=== PATIENT | male | born 1960 | race Caucasian/White ===

== ENCOUNTER 2018-04-24 12:55 | Outpatient (CLI) | payer BC, OTHER ==
--- NOTE | 2018-04-25 08:30 | Ultrasound Report ---
Reason: ENCOUNTER FOR SCREENING FOR CARDIOVASCULAR DISORDE Procedure Date: 04/24/2018 Accession Number: [id number] / [id number] Procedure: US - Aorta Screening CPT Code: FULL RESULT: EXAM: AORTIC DOPPLER ULTRASOUND EXAM DATE: 04/24/2018 01:05 PM. CLINICAL HISTORY: Encounter for screening for cardiovascular disorder. COMPARISON: None. TECHNIQUE: Real-time sonographic imaging of retroperitoneal vascular structures, including color-flow, Doppler flow and spectral analysis was performed by the [employer] manager. Multiple telemarketing representative static images were saved for review. FINDINGS: Aorta: There is fusiform aneurysm of the distal infrarenal aorta just above the bifurcation measuring 3.1 x 3.3 cm in transverse dimension involving a 5.7 cm length of the infrarenal aorta. Aneurysmal dilatation spares the iliac arteries. Aorta: Proximal: Sagittal AP: 2.3 cm. Mid: Transverse: 1.9 x 2.0 cm. Distal: Transverse: 3.1 x 3.3 cm. Iliacs: Right Iliac: Transverse: 1.1 x 1.1 cm. Left Iliac: Transverse: 1.3 x 1.1 cm. Doppler: Distal Aorta PSV: 30.9 cm/sec. Iliac Vessels: The visualized proximal common iliac arteries are normal in caliber. Other: None. IMPRESSION: 3.3 cm fusiform aneurysm distal infrarenal aorta as described. RADIA
== END 2018-04-24 12:56 | disposition home or self-care (01) ==
LOC: DI 12:55
PROVIDERS: ATTEND Specialist
DX: Z13.6 Encounter for screening for cardiovascular disorders (principal); I71.4 Abdominal aortic aneurysm, without rupture; F17.200 Nicotine dependence, unspecified, uncomplicated
CPT/HCPCS: 76706

== ENCOUNTER 2018-12-05 08:30 | Emergency (ER) | payer BC, OTHER ==
--- NOTE | 2018-12-05 08:41 | ED Physician Documentation ---
History of Present Illness - Stated complaint Stated Complaint: RT LEG RASH - Additonal information Additional information: This is a 58-year-old male who presents with right leg Redness and swelling that begin while he was in [facility]. Patient states that prior to going to [facility] he was working on his knees in [place] and then upon arriving in [facility] around 10 days ago he began developing some redness of his right lower leg that began around the ankle area. He went into the hospital there and he was prescribed Augmentin, this did not improve his rash after several days so he re-presented and was prescribed dicloxacillin. The doctors there reportedly wanted to admit him to the hospital there, but he decided to fly back [facility] to seek care here instead. States that the rash was somewhat improving but yesterday on the plane it worsened again. He notes some redness around his kneecap, extending down the leg. He denies pain with flexion of his knee, no pain in the knee joint itself. He denies fever now, although he states that when the symptoms first began he did have some vomiting and feeling of general malaise. He denies any exposure to animals, or specific cuts or injuries to the area. Review of Systems Constitutional: denies: Fever Nose: denies: Rhinorrhea / runny nose Cardiac: denies: Chest pain / pressure Respiratory: denies: Dyspnea GI: denies: Abdominal Pain : denies: Dysuria Skin: reports: Rash Musculoskeletal: denies: Neck pain Neurologic: denies: Generalized weakness Immunocompromised: denies: Immunocompromised PD PAST MEDICAL HISTORY - Past Medical History Cardiovascular: [place] Respiratory: None Endocrine/Autoimmune: None GI: None : None HEENT: None Psych: None Musculoskeletal: None Derm: None - Past Surgical History Past Surgical History: Yes Ortho: ACL reconstruction Cardiovascular: Coronary stent - Present Medications Home Medications: Ambulatory Orders Medication Instructions Recorded Confirmed Atorvastatin Calcium [Lipitor] 40 mg PO 03/28/13 03/28/13 Clopidogrel [Plavix] 75 mg PO DAILY 03/28/13 03/28/13 Losartan [Cozaar] 25 mg PO ONCE 03/28/13 03/28/13 Metoprolol Succinate [Toprol Xl] 25 mg PO DAILY 03/28/13 03/28/13 Aspirin 81 mg PO DAILY 09/07/15 09/07/15 Clindamycin HCl [Clindamycin 300MG 300 mg PO Q6H #40 capsule 12/05/18 CAP] - Allergies Allergies/Adverse Reactions: Allergies Allergy/AdvReac Type Severity Reaction Status Date / Time No Known Drug Allergies Allergy Verified 12/05/18 08:42 - Social History Does the pt smoke?: Yes Smoking Status: Current every day smoker Does the pt drink ETOH?: No Does the pt have substance abuse?: No - Immunizations Immunizations are current?: Yes Immunizations: No immun PD ED PE NORMAL - Vitals Vital signs reviewed: Yes - General General: Alert and oriented X 3, No acute distress - HEENT HEENT: PERRL - Neck Neck: Supple, no meningeal sign - Cardiac Cardiac: RRR - Respiratory Respiratory: No respiratory distress, Clear bilaterally - Abdomen Abdomen: Soft, Non tender, Non distended - Derm Derm: Other (On the RLL there is an area of 4x4cm of erythema overlying the patella. No redness over the joint line, patient has full painless ROM of his knee. Distal to the patella there are scattered erythematous patches with mild induration, no purulence. These are mostly blanchable but several of the lesions have a dark-red component that is less-blanchable. No petechiae.) - Extremities Extremities: No deformity - Neuro Neuro: Alert and oriented X 3 - Psych Psych: Normal mood, Normal affect Results - Vitals Vitals: Vital Signs - 24 hr 12/05/18 12/05/18 12/05/18 08:40 10:28 12:00 Temperature 36.6 C Heart Rate 86 81 75 Respiratory 20 16 16 Rate Blood Pressure 139/84 H 115/74 120/82 H O2 Saturation 98 99 100 Oxygen O2 Source Room air - Labs Labs: Microbiology 12/05/18 13:10 Body Fluid Culture - Preliminary Other - Aspirate Laboratory Tests 12/05/18 12/05/18 12/05/18 09:10 09:10 09:10 WBC 7.6 RBC 4.17 L Hgb 13.6 L Hct 40.0 L MCV 95.9 H MCH 32.6 H MCHC 34.0 RDW 12.5 Plt Count 343 MPV 10.1 Neut # (Auto) 4.8 Lymph # (Auto) 1.9 Toombs # (Auto) 0.6 Eos # (Auto) 0.1 Baso # (Auto) 0.1 Absolute Nucleated RBC 0.00 Nucleated RBC % 0.0 PT 13.4 H INR 1.2 Sodium 139 Potassium 4.1 Chloride 102 Carbon Dioxide 27 Anion Gap 10.0 BUN 14 Creatinine 0.9 Estimated GFR (MDRD) 87 L Glucose 112 H Lactic Acid Calcium 9.8 Total Bilirubin 0.7 AST 30 ALT 42 Alkaline Phosphatase 88 C-Reactive Protein 1.4 H Total Protein 7.1 Albumin 3.7 Globulin 3.4 Albumin/Globulin Ratio 1.1 Lipase 41 12/05/18 09:10 WBC RBC Hgb Hct MCV MCH MCHC RDW Plt Count MPV Neut # (Auto) Lymph # (Auto) Toombs # (Auto) Eos # (Auto) Baso # (Auto) Absolute Nucleated RBC Nucleated RBC % PT INR Sodium Potassium Chloride Carbon Dioxide Anion Gap BUN Creatinine Estimated GFR (MDRD) Glucose Lactic Acid 1.3 Calcium Total Bilirubin AST ALT Alkaline Phosphatase C-Reactive Protein Total Protein Albumin Globulin Albumin/Globulin Ratio Lipase - Rads (name of study) DVT US R leg Radiology: Other (No DVT) PD MEDICAL DECISION MAKING - ED course Complexity details: considered differential (Cellulitis, bursitis, vasculitis, parasitic/fungal infection) ED course: Patient presents with a persistent rash that began while in [place] and has been refractory to 2 different antibiotics. He is afebrile and well-appearing. Labs show no leukocytosis, and only a very slightly elevated CRP. Lactate is normal. Using US I was able to localize a very small pre-patellar fluid collection on his right knee that was aspirated and sent for culture, gram stain negative for organisms. This appears to be a prepatellar cellulitis/possible infected bursitis, no signs of septic joint. The rash lower on his leg appears to be a seperate entity. It also may be cellulitis, though the darker red areas are not classic for cellulitis and raise concern for possible vasculitis such as "hikers/golfer's/exercise-induced vasculitis". However this is also atypical for vasculitis because it only affects one leg. Given his reassuring labs and exam, and lack of worrisome symptoms such as fever, involvement of palms or soles, or mucous membranes we discussed treatment options and elected to try clindamycin, which has broader coverage including some MRSA coverage for cellulitis. If the rash is not improving, or if it is spreading or worsening, patient will return for a recheck tomorrow. He understands the diagnostic uncertainty and the need for follow up in the ED or with his PCP. Patient was given the first dose of antibiotic and was discharged in the care of his . Departure - Departure Disposition: 01 Home, Self Care Clinical Impression: Cellulitis Qualifiers: Site of cellulitis: extremity Site of cellulitis of extremity: lower extremity Laterality: right Qualified Code(s): L03.115 - Cellulitis of right lower limb Condition: Good Instructions: Cellulitis Dc Follow-Up: CHAPARRO KILGORE [Primary Care Provider] - Within 1 week Prescriptions: Clindamycin HCl [Clindamycin 300MG CAP] 300 mg PO Q6H #40 capsule Comments: You were seen today for a rash on your right leg. This appears to be an infection, we have sent a culture to check the fluid from the skin around your knee. Please take the entire course of antibiotic prescribed. If your rash is not improving please return for recheck in the next 24 hours. If you develop fever, rash that is spreading quickly, or any other concerning symptoms, please return to the emergency department immediately. Discharge Date/Time: 12/05/18 13:34
[2018-12-05 09:25] LABS: BASOPHILS # (AUTO) 0.1 10^3/uL (0.0-0.1); BASOPHILS % (AUTO) 0.9 %; EOSINOPHILS # (AUTO) 0.1 10^3/uL (0.0-0.7); EOSINOPHILS % (AUTO) 1.7 %; HGB - HEMOGLOBIN 13.6 g/dL (14.0-18.0); LYMPHOCYTES # (AUTO) 1.9 10^3/uL (1.5-3.5); LYMPHOCYTES % (AUTO) 24.4 %; MEAN CORPUSCULAR HEMOGLOBIN 32.6 pg (27.0-31.0); MEAN CORPUSCULAR VOLUME 95.9 fL (80.0-94.0); MEAN PLATELET VOLUME 10.1 fL (7.4-11.4); MONOCYTES # (AUTO) 0.6 10^3/uL (0.0-1.0); MONOCYTES % (AUTO) 8.4 %; NEUTROPHILS # (AUTO) 4.8 10^3/uL (1.5-6.6); NEUTROPHILS % (AUTO) 63.5 %; PLT - PLATELET COUNT 343 10^3/uL (130-450); RED BLOOD COUNT 4.17 10^6/uL (4.70-6.10); RED CELL DISTRIBUTION WIDTH 12.5 % (12.0-15.0); WHITE BLOOD COUNT 7.6 x10^3/uL (4.8-10.8)
[2018-12-05 09:32] LABS: INR 1.2 (0.8-1.2); PT - PROTHROMBIN TIME 13.4 secs (9.9-12.6)
[2018-12-05 09:43] LABS: ALBUMIN 3.7 g/dL (3.2-5.5); ALBUMIN/GLOBULIN RATIO 1.1 (1.0-2.2); BILIRUBIN,TOTAL 0.7 mg/dL (0.2-1.0); CALCIUM 9.8 mg/dL (8.5-10.3); CREATININE 0.9 mg/dL (0.6-1.2); TOTAL PROTEIN 7.1 g/dL (6.7-8.2)
[2018-12-05 10:36] LABS: CRP - C-REACTIVE PROTEIN 1.4 mg/dL (0-1.0)
--- NOTE | 2018-12-05 11:41 | Ultrasound Report ---
Reason: Leg redness and swelling, R/o DVT Procedure Date: 12/05/2018 Accession Number: [id number] / [id number] Procedure: US - Duplex Ext Veins Right CPT Code: FULL RESULT: EXAM: RIGHT LOWER EXTREMITY VENOUS ULTRASOUND EXAM DATE: 12/05/2018 11:10 AM. CLINICAL HISTORY: Leg redness and swelling, R/o DVT. COMPARISON: None. TECHNIQUE: Real-time sonographic vascular imaging was performed by the archivist [employer] history through the lower extremity utilizing both color-flow and Doppler spectral analysis. Multiple escrow representative static images were saved for review. FINDINGS: Common Femoral Vein (CFV): Normal. CFV-GSV Junction: Normal. Profunda Femoral Vein (PFV): Normal. Femoral Vein (FV) Prox: Normal. Femoral Vein (FV) Mid: Normal. Femoral Vein (FV) Dist: Normal. Popliteal Vein: Normal. Posterior Tibial Veins: Normal. Peroneal Veins: Normal. Contralateral Side CFV: Normal. Other: None. IMPRESSION: No evidence for deep venous thrombosis in the right lower extremity. RADIA
[2018-12-05 12:19] VITALS: BP 120/82
[2018-12-05] MEDS ORDERED: LIDOCAINE 1% 2 ML VIAL SUBQ STA (12:19)
[2018-12-05] MEDS ORDERED: CLINDAMYCIN 150 MG CAPSULE PO STA (13:12)
== END 2018-12-05 13:34 | disposition home or self-care (01) ==
LOC: ED 08:30
DX: L03.115 Cellulitis of right lower limb (principal); I25.2 Old myocardial infarction; F17.200 Nicotine dependence, unspecified, uncomplicated; Z95.5 Presence of coronary angioplasty implant and graft; Z79.899 Other long term (current) drug therapy; Z79.82 Long term (current) use of aspirin; Z79.02 Long term (current) use of antithrombotics/antiplatelets
CPT/HCPCS: 20610; 36415; 80053; 83605; 83690; 85025; 85610; 86140; 87070; 87205; 93971; 99284; A9270

== ENCOUNTER 2019-03-11 13:08 | Emergency (ER) | payer OTHER ==
--- NOTE | 2019-03-11 14:55 | ED Physician Documentation ---
PD HPI SKIN - Stated complaint Stated Complaint: RASH - Chief complaint Chief Complaint: Wound - History obtained from History obtained from: Patient - History of Present Illness Timing - onset: Yesterday Timing - duration: Days (2) Timing - details: Gradual onset, Still present Location: Bodywide Quality / character: Itchy, Discolored (red raised rash in lines/welts. Noted in some parallel lines in areas that would be reachable, though he denies scratching.). No: Vesicular Associated symptoms: No: Fever, Headache, Facial swelling, Dyspnea, N/V/D Contributing factors: No: Exposed to medication, Exposed to food, Exposed to soap / lotion, Recent illness Similar symptoms before: No diagnosis (had similar when back from travel few years ago and Rx with antibiotic but took 4 weeks to go away. That one was local to just side of lower leg. No other episodes.) Recently seen: Not recently seen Review of Systems Constitutional: denies: Fever, Chills, Myalgias Nose: denies: Rhinorrhea / runny nose, Congestion Throat: denies: Sore throat Respiratory: denies: Dyspnea, Cough GI: denies: Abdominal Pain, Nausea, Vomiting, Diarrhea : denies: Discharge Skin: reports: Rash Neurologic: denies: Generalized weakness, Focal weakness, Numbness, Near syncope, Headache PD PAST MEDICAL HISTORY - Past Medical History Cardiovascular: [place] Respiratory: None Endocrine/Autoimmune: None GI: None : None HEENT: None Psych: None Musculoskeletal: None Derm: None - Past Surgical History Past Surgical History: Yes Ortho: ACL reconstruction Cardiovascular: Coronary stent - Present Medications Home Medications: Ambulatory Orders Medication Instructions Recorded Confirmed Atorvastatin Calcium [Lipitor] 40 mg PO 03/28/13 03/28/13 Clopidogrel [Plavix] 75 mg PO DAILY 03/28/13 03/28/13 Losartan [Cozaar] 25 mg PO ONCE 03/28/13 03/28/13 Metoprolol Succinate [Toprol Xl] 25 mg PO DAILY 03/28/13 03/28/13 Aspirin 81 mg PO DAILY 09/07/15 09/07/15 Clindamycin HCl [Clindamycin 300MG 300 mg PO Q6H #40 capsule 12/05/18 CAP] Cetirizine [ZyrTEC] 10 mg PO DAILY #15 tablet 03/11/19 dexAMETHasone [Decadron] 4 mg PO DAILY #5 tablet 03/11/19 - Allergies Allergies/Adverse Reactions: Allergies Allergy/AdvReac Type Severity Reaction Status Date / Time No Known Drug Allergies Allergy Verified 03/11/19 13:20 - Social History Does the pt smoke?: Yes Smoking Status: Current every day smoker Does the pt drink ETOH?: No ETOH Use: Wine Does the pt have substance abuse?: No - Immunizations Immunizations are current?: Yes Immunizations: No immun PD ED PE NORMAL - Vitals Vital signs reviewed: Yes - General General: Alert and oriented X 3, No acute distress, Well developed/nourished - HEENT HEENT: Atraumatic - Neck Neck: Supple, no meningeal sign, No adenopathy - Cardiac Cardiac: RRR, No murmur - Respiratory Respiratory: Clear bilaterally - Abdomen Abdomen: Soft, Non tender - Derm Derm: Normal color, Warm and dry, Other (welts in linear pattern in reachable areas (shoulders, abd, sides of torso/back). 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 No vesicles. ) Results - Vitals Vitals: Oxygen O2 Source Room air PD MEDICAL DECISION MAKING - ED course Complexity details: considered differential (it looks hive like, with linearity on shoulders and on torso in areas that would be reachable with fingers, though he denies scratching at all. No vesicles. No oral lesions nor swelling. Unclear trigger/cause.), d/w patient, d/w family () Departure - Departure Disposition: 01 Home, Self Care Clinical Impression: Urticarial rash Condition: Stable Record reviewed to determine appropriate education?: Yes Instructions: ED Urticaria Follow-Up: Osito Nelson [Primary Care Provider] - Prescriptions: Cetirizine [ZyrTEC] 10 mg PO DAILY #15 tablet dexAMETHasone [Decadron] 4 mg PO DAILY #5 tablet Comments: This looks like an allergic reaction rash to me. Use cetirizine antihistamine daily for the next week or 2. Decadron steroid daily for the next 5 days. Add Benadryl every 6 hours if needed for itchiness and rash. I would anticipate improvement over the next couple of days and then resolution of it. Recheck if not improved over the next several days or if it recurs again after stopping medicines. Return or follow-up with your primary care if other symptoms develop as well such as fever or vomiting or trouble breathing or swelling of the throat etc. Discharge Date/Time: 03/11/19 15:39
[2019-03-11] MEDS ORDERED: CETIRIZINE 10 MG TABLET PO STA (15:21)
[2019-03-11] MEDS ORDERED: CHERRY SYRUP 10 ML UDC PO ONE (15:21)
[2019-03-11] MEDS ORDERED: DEXAMETHASONE 10 MG/ML VIAL PO STA (15:21)
[2019-03-11] MEDS ORDERED: diphenhydrAMINE 25 MG CAPSULE PO STA (15:21)
[2019-03-11 15:39] VITALS: BP 123/85
== END 2019-03-11 15:39 | disposition home or self-care (01) ==
LOC: ED 13:08
DX: L50.3 Dermatographic urticaria (principal); F17.200 Nicotine dependence, unspecified, uncomplicated
CPT/HCPCS: 99282; 99284; A9270

== ENCOUNTER 2021-07-09 11:50 | Emergency (ER) | payer OTHER ==
[2021-07-09 12:00] VITALS: BP 140/76
[2021-07-09] MEDS ORDERED: TETANUS/DIPHTHERIA/PERTUSSIS 0.5 ML SYRINGE IM ONE (12:03)
[2021-07-09] MEDS ORDERED: BACITRACIN ZINC OINT 1 PACKET TOP STA (12:03)
[2021-07-09] MEDS ORDERED: BUPIVACAINE 0.5% PF 10 ML VIAL SUBQ STA (12:03)
--- NOTE | 2021-07-09 12:05 | ED Physician Documentation ---
History of Present Illness - Stated complaint Stated Complaint: LT THUMB LAC - Chief complaint Chief Complaint: Laceration - Additonal information Additional information: 61-year-old right-handed male presents emergency department for evaluation of a laceration to the distal fat pad of his left thumb sustained when using a table saw at home. Uncertain of last tetanus. Bleeding controlled with pressure. Review of Systems Constitutional: reports: Reviewed and negative Ears: reports: Reviewed and negative Throat: reports: Reviewed and negative Cardiac: reports: Reviewed and negative Respiratory: reports: Reviewed and negative Skin: reports: Laceration (s) PD PAST MEDICAL HISTORY - Past Medical History Cardiovascular: [place] Respiratory: None Endocrine/Autoimmune: None GI: None : None HEENT: None Psych: None Musculoskeletal: None Derm: None - Past Surgical History Past Surgical History: Yes Ortho: ACL reconstruction Cardiovascular: Coronary stent - Present Medications Home Medications: Ambulatory Orders Medication Instructions Recorded Confirmed Atorvastatin Calcium [Lipitor] 40 mg PO DAILY 03/28/13 07/09/21 Losartan [Cozaar] 25 mg PO ONCE 03/28/13 07/09/21 Metoprolol Succinate [Toprol Xl] 25 mg PO DAILY 03/28/13 07/09/21 Aspirin 81 mg PO DAILY 09/07/15 07/09/21 - Allergies Allergies/Adverse Reactions: Allergies Allergy/AdvReac Type Severity Reaction Status Date / Time No Known Drug Allergies Allergy Verified 03/11/19 13:20 - Social History Does the pt smoke?: Yes Smoking Status: Current every day smoker Does the pt drink ETOH?: No Does the pt have substance abuse?: No - Immunizations Immunizations are current?: Yes Immunizations: No immun PD ED PE EXPANDED - General General: Alert, No acute distress - Extremities Extremities: Left finger(s) (3 cm laceration distal tip left thumb on fat pad. Preferred preserved flexion/extension at DIP joint. Bleeding controlled with pressure. Some numbness distally.) Results - Vitals Vitals: Vital Signs - 24 hr 07/09/21 11:57 Temperature 37.1 C Heart Rate 78 Respiratory 18 Rate Blood Pressure 140/76 H O2 Saturation 96 Oxygen O2 Source Room air Procedures - Laceration (location) left thumb Length in cm: 3.5 Wound type: Linear, Into subcut fat, Clean Neurovascular status: Sensory intact, Motor intact Tendon involvement: Tendon intact Wound preparation: Betadine, Irrigated copiously NS, Wound explored, To the base Skin layer closure: Interrupted, Size #-0 - enter number (4), Sutures - enter # (7) Other: Patient tolerated well, No complications, Dressing applied, Tetanus booster given PD MEDICAL DECISION MAKING - ED course Complexity details: considered differential, d/w patient ED course: 61-year-old male with a 1/8 inch gaping wound to the fat pad of the left thumb sustained when using a table saw. Wound was closed with 7 sutures. Tetanus was updated today. Discussed that this will also have to heal by some component of secondary intention given that the wound was gaping. Routine wound care and emergent return precautions discussed Departure - Departure Disposition: 01 Home, Self Care Clinical Impression: Laceration of left thumb Qualifiers: Encounter type: initial encounter Damage to nail status: without damage Foreign body presence: without foreign body Qualified Code(s): S61.012A - Laceration without foreign body of left thumb without damage to nail, initial encounter Condition: Stable Record reviewed to determine appropriate education?: Yes Instructions: ED Laceration Hand Comments: Your suture(s) should be removed in 10-14 days. In 24 hours you may remove the dressing wash gently with warm soap and water, apply any antibiotic ointment and a simple bandage. Your tetanus Was updated today and should be current for the next 7 to 10 years. Please attempt to keep your wound clean and dry. Do not submerge it in dirty dishwater or bath water. As we discussed at the bedside the tip of your thumb does have some numbness which indicates that the peripheral nerve may be damaged. This is something that may heal over time though there is no specific treatment for it. Return to the emergency department if you have any concerns of infection such as redness, fevers milky drainage increased pain.
[2021-07-09] MEDS ORDERED: lidocaine 1% 20 ML MDV ONE (12:21)
== END 2021-07-09 13:01 | disposition home or self-care (01) ==
LOC: ED 11:50
DX: S61.012A Laceration without foreign body of left thumb without damage to nail, initial encounter (principal); F17.200 Nicotine dependence, unspecified, uncomplicated; W27.0XXA Contact with workbench tool, initial encounter; Y92.009 Unspecified place in unspecified non-institutional (private) residence as the place of occurrence of the external cause
CPT/HCPCS: 12002; 90471; 90715; 99283; A9270

== ENCOUNTER 2023-04-09 13:45 | Emergency (ER) | payer OTHER ==
[2023-04-09] MEDS: SODIUM CHLORIDE 0.9% 1,000 ML IV STA (14:17)
[2023-04-09] MEDS: ONDANSETRON 4 MG/2 ML VIAL IVP STA (14:17)
[2023-04-09 14:19] LABS: BASOPHILS % (AUTO) 0.3 %; EOSINOPHILS % (AUTO) 0.4 %; HCT - HEMATOCRIT 45.1 % (42.0-52.0); HGB - HEMOGLOBIN 15.3 g/dL (14.0-18.0); LYMPHOCYTES # (AUTO) 1.8 10^3/uL (1.5-3.5); LYMPHOCYTES % (AUTO) 23.3 %; MEAN CORPUSCULAR HEMOGLOBIN 31.2 pg (27.0-31.0); MEAN CORPUSCULAR HGB CONC 33.9 g/dL (32.0-36.0); MEAN PLATELET VOLUME 10.1 fL (7.4-11.4); MONOCYTES # (AUTO) 0.5 10^3/uL (0.0-1.0); NEUTROPHILS # (AUTO) 5.3 10^3/uL (1.5-6.6); NEUTROPHILS % (AUTO) 69.6 %; PLT - PLATELET COUNT 219 10^3/uL (130-450); RED CELL DISTRIBUTION WIDTH 12.1 % (12.0-15.0); WHITE BLOOD COUNT 7.5 x10^3/uL (4.8-10.8)
[2023-04-09 14:44] LABS: ALBUMIN 4.8 g/dL (3.2-5.5); ALBUMIN/GLOBULIN RATIO 1.6 (1.0-2.2); BILIRUBIN,TOTAL 0.8 mg/dL (0.2-1.0); CALCIUM 10.3 mg/dL (8.5-10.3); POTASSIUM 3.7 mmol/L (3.5-4.5); TOTAL PROTEIN 7.8 g/dL (6.4-8.9)
[2023-04-09] MEDS: MECLIZINE 12.5 MG TABLET PO STA (15:22)
--- NOTE | 2023-04-09 15:23 | ED Physician Documentation ---
History of Present Illness - Stated complaint Stated Complaint: VOMITING - Chief complaint Chief Complaint: Heent - History obtained from History obtained from: Patient - Additonal information Additional information: Patient is a 62-year-old male presenting for evaluation of nausea and vomiting starting around 3 PM yesterday afternoon. Patient also reports feeling lightheaded with turning his head. He describes this as feeling off balance. He reports his symptoms are worse when he looks to the left. He denies head injury or headache. Reports having had the symptoms in the past. Emesis has been nonbloody and nonbilious. Denies chest pain, shortness of air, abdominal pain, diarrhea. No known sick contacts. 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 Review of Systems Constitutional: denies: Fever Cardiac: denies: Chest pain / pressure Respiratory: denies: Dyspnea, Cough GI: reports: Nausea, Vomiting. denies: Abdominal Pain : denies: Dysuria Neurologic: denies: Headache, Head injury PD PAST MEDICAL HISTORY - Past Medical History Past Medical History: Yes Cardiovascular: Hypertension, [place] Respiratory: None Neuro: None Endocrine/Autoimmune: None GI: None : None HEENT: None Psych: None Musculoskeletal: None Derm: None - Past Surgical History Past Surgical History: Yes Ortho: ACL reconstruction Cardiovascular: Coronary stent - Present Medications Home Medications: Ambulatory Orders Medication Instructions Recorded Confirmed Atorvastatin Calcium [Lipitor] 40 mg PO DAILY 03/28/13 04/09/23 Losartan [Cozaar] 25 mg PO DAILY 03/28/13 04/09/23 Metoprolol Succinate [Toprol Xl] 25 mg PO DAILY 03/28/13 04/09/23 Aspirin 81 mg PO DAILY 09/07/15 04/09/23 Evolocumab [Repatha Pushtronex] 420 mg PO MAINTENANCE.IV 04/09/23 04/09/23 Meclizine HCl [Motion Sickness] 25 mg PO Q6H PRN #20 tablet 04/09/23 Ondansetron Odt [Zofran] 4 mg TL Q6H PRN #10 tablet 04/09/23 - Allergies Allergies/Adverse Reactions: Allergies Allergy/AdvReac Type Severity Reaction Status Date / Time No Known Drug Allergies Allergy Verified 03/11/19 13:20 - Social History Does the pt smoke?: Yes Smoking Status: Current every day smoker Does the pt drink ETOH?: No Does the pt have substance abuse?: No - Immunizations Immunizations are current?: Yes Immunizations: No immun PD ED PE NORMAL - General General: Alert and oriented X 3, No acute distress, Well developed/nourished - HEENT HEENT: Atraumatic, Moist mucous membranes, Pharynx benign - Neck Neck: Supple, no meningeal sign - Cardiac Cardiac: RRR, Strong equal pulses - Respiratory Respiratory: No respiratory distress, Clear bilaterally - Abdomen Abdomen: Normal bowel sounds, Soft, Non tender, Non distended - Derm Derm: Warm and dry - Neuro Neuro: Alert and oriented X 3, 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 Relevant findings are: Rate 81, normal sinus rhythm, PVCs, no STEMI, QTc 498 - Labs Labs: Laboratory Tests 04/09/23 04/09/23 14:10 14:10 WBC 7.5 RBC 4.90 Hgb 15.3 Hct 45.1 MCV 92.0 MCH 31.2 H MCHC 33.9 RDW 12.1 Plt Count 219 MPV 10.1 Neut # (Auto) 5.3 Lymph # (Auto) 1.8 [place] # (Auto) 0.5 Eos # (Auto) 0.0 Baso # (Auto) 0.0 Absolute Nucleated RBC 0.00 Nucleated RBC % 0.0 Sodium 137 Potassium 3.7 Chloride 104 Carbon Dioxide 22 Anion Gap 11.0 BUN 14 Creatinine 1.0 Estimated GFR (MDRD) 76 L Glucose 149 H Calcium 10.3 Total Bilirubin 0.8 AST 26 ALT 30 Alkaline Phosphatase 64 Total Protein 7.8 Albumin 4.8 Globulin 3.0 Albumin/Globulin Ratio 1.6 Lipase 12 PD Medical Decision Making - ED course Complexity details: reviewed results, d/w patient ED course: Patient is a 62-year-old male presenting for evaluation of feeling dizziness and lightheadedness along with nausea and vomiting since yesterday. He is well- appearing here and ambulatory with normal neuroexam including cerebellar testing. He does have increased symptoms with head turning towards the left. CBC and chemistries were obtained and reviewed and without significant findings. He received IV fluids, Zofran and meclizine here with significant improvement in his symptoms. No exam findings to suggest central cause of vertigo or symptoms. Patient counseled on need for close follow-up as Strict return precautions for any worsening symptoms. 1600 - Feeling much better after meclizine. Departure - Departure Disposition: 01 Home, Self Care Clinical Impression: Vertigo, Nausea & vomiting Condition: Stable Instructions: ED Vertigo Unspecified Follow-Up: Osito Nelson [Primary Care Provider] - Prescriptions: Meclizine HCl [Motion Sickness] 25 mg PO Q6H PRN #20 tablet PRN Reason: Dizziness Ondansetron Odt [Zofran] 4 mg TL Q6H PRN #10 tablet PRN Reason: Nausea / Vomiting Comments: You were evaluated for dizziness as well as nausea and vomiting. Your labs are reassuring with normal electrolytes. I suspect that your symptoms are related to vertigo. I sent a prescription for an antivertigo medication called meclizine as well as antinausea medication to [facility] in [place]. You can also try something called the Marley maneuver at home. This may help with your particular type of vertigo. There are YouTube videos available on how to perform the Marley maneuver. I would also recommend close follow-up with your primary care provider. Return to the ER with any worsening symptoms. Forms: PCP List Discharge Date/Time: 04/09/23 16:16
[2023-04-09 15:35] VITALS: BP 120/73; O2SAT 100
== END 2023-04-09 16:16 | disposition home or self-care (01) ==
LOC: ED 13:45
DX: R42 Dizziness and giddiness (principal); F17.200 Nicotine dependence, unspecified, uncomplicated
CPT/HCPCS: 36415; 80053; 83690; 85025; 93005; 96374; 99283; 99284; A9270

== ENCOUNTER 2023-04-10 15:09 | Emergency (ER) | payer OTHER ==
--- NOTE | 2023-04-10 15:57 | ED Physician Documentation ---
PD HPI [facility]URO - Stated complaint Stated Complaint: DIZZY/VOMITING - Chief complaint Chief Complaint: Neuro - History obtained from History obtained from: Patient, Family - Additional information Additional information: Starting mid-morning on Saturday he developed vertigo with N/v. No headache. Seen yesterday, was better p meclizine, but not helping anymore. Also no longer worse with head motion. No new ear sx, has chronic tinnitus. Has hx [place], quit smoking 9 yrs ago. PD PAST MEDICAL HISTORY - Past Medical History Past Medical History: Yes Cardiovascular: Hypertension, [place] Respiratory: None Neuro: None Endocrine/Autoimmune: None GI: None : None HEENT: None Psych: None Musculoskeletal: None Derm: None - Past Surgical History Past Surgical History: Yes Ortho: ACL reconstruction Cardiovascular: Coronary stent - Present Medications Home Medications: Ambulatory Orders Medication Instructions Recorded Confirmed Atorvastatin Calcium [Lipitor] 40 mg PO DAILY 03/28/13 04/10/23 Losartan [Cozaar] 25 mg PO DAILY 03/28/13 04/10/23 Metoprolol Succinate [Toprol Xl] 25 mg PO DAILY 03/28/13 04/10/23 Aspirin 81 mg PO DAILY 09/07/15 04/10/23 Evolocumab [Repatha Pushtronex] 420 mg PO MAINTENANCE.IV 04/09/23 04/10/23 Meclizine HCl [Motion Sickness] 25 mg PO Q6H PRN #20 tablet 04/09/23 04/10/23 Ondansetron Odt [Zofran] 4 mg TL Q6H PRN #10 tablet 04/09/23 04/10/23 Metoclopramide [Reglan] 10 mg PO Q6H PRN #20 tablet 04/10/23 - Allergies Allergies/Adverse Reactions: Allergies Allergy/AdvReac Type Severity Reaction Status Date / Time No Known Drug Allergies Allergy Verified 04/10/23 15:20 - Social History Does the pt smoke?: Yes Smoking Status: Former smoker Does the pt drink ETOH?: No Does the pt have substance abuse?: No - Immunizations Immunizations are current?: Yes Immunizations: No immun PD ED PE NORMAL - Vitals Vital signs reviewed: Yes - General General: Alert and oriented X 3, No acute distress - HEENT HEENT: PERRL, EOMI (no nystagmus) - Neck Neck: Supple, no meningeal sign, No bony TTP - Cardiac Cardiac: RRR, No murmur - Respiratory Respiratory: No respiratory distress, Clear bilaterally - Abdomen Abdomen: Non tender - Back Back: No CVA TTP, No spinal TTP - Derm Derm: Normal color, Warm and dry - Neuro Neuro: Alert and oriented X 3, No motor deficit, No sensory deficit, Normal speech Eye Opening: Spontaneous Motor: Obeys Commands Verbal: Oriented GCS Score: 15 - Psych Psych: Normal mood, Normal affect Results - Vitals Vitals: Vital Signs - 24 hr 04/10/23 04/10/23 04/10/23 15:15 16:14 17:51 Temperature 36.5 C Heart Rate 95 98 86 Respiratory 18 16 16 Rate Blood Pressure 132/85 H 137/76 H 146/89 H O2 Saturation 98 96 98 Oxygen O2 Source Room air - Labs Labs: Laboratory Tests 04/10/23 04/10/23 16:00 16:00 WBC 9.7 RBC 4.99 Hgb 15.6 Hct 46.0 MCV 92.2 MCH 31.3 H MCHC 33.9 RDW 12.1 Plt Count 226 MPV 10.2 Neut # (Auto) 7.3 H Lymph # (Auto) 1.5 [place] # (Auto) 0.7 Eos # (Auto) 0.0 Baso # (Auto) 0.0 Absolute Nucleated RBC 0.00 Nucleated RBC % 0.0 Sodium 139 Potassium 3.6 Chloride 105 Carbon Dioxide 24 Anion Gap 10.0 BUN 15 Creatinine 1.0 Estimated GFR (MDRD) 76 L Glucose 116 H Calcium 10.4 H Total Bilirubin 0.7 AST 22 ALT 25 Alkaline Phosphatase 63 Total Protein 7.7 Albumin 4.8 Globulin 2.9 Albumin/Globulin Ratio 1.7 - Rads (name of study) MRI of the brain without contrast was unremarkable. Relevant Findings:: Final report received, EMP independent interpretation of test PD Medical Decision Making - ED course ED course: 62-year-old gentleman with vertigo. Previously was motion related and felt to be peripheral but now is not so more concerning especially given his age and vascular risk factors including prior coronary disease as such an MRI of the brain was done without pertinent positive findings. He is feeling better after 0.5 mg of IV Ativan and IV Reglan here. Departure - Departure Disposition: 01 Home, Self Care Clinical Impression: Vertigo Condition: Good Record reviewed to determine appropriate education?: Yes Instructions: ED Vertigo Unspecified Prescriptions: Metoclopramide [Reglan] 10 mg PO Q6H PRN #20 tablet PRN Reason: nausea or headache Comments: I sent your prescription electronically to [facility] in [place]. Thankfully the MRI of your brain was normal/negative ruling out a "central" cause of your vertigo. If you are continuing to be symptomatic, reasonable to follow-up with an ear nose and throat physician, the closest is in [place], the phone number is [phone]. Return if worse. Forms: PCP List Discharge Date/Time: 04/10/23 18:17
[2023-04-10 16:09] LABS: BASOPHILS % (AUTO) 0.2 %; EOSINOPHILS % (AUTO) 0.2 %; HGB - HEMOGLOBIN 15.6 g/dL (14.0-18.0); LYMPHOCYTES # (AUTO) 1.5 10^3/uL (1.5-3.5); LYMPHOCYTES % (AUTO) 15.8 %; MEAN CORPUSCULAR HEMOGLOBIN 31.3 pg (27.0-31.0); MEAN CORPUSCULAR HGB CONC 33.9 g/dL (32.0-36.0); MEAN CORPUSCULAR VOLUME 92.2 fL (80.0-94.0); MEAN PLATELET VOLUME 10.2 fL (7.4-11.4); MONOCYTES # (AUTO) 0.7 10^3/uL (0.0-1.0); MONOCYTES % (AUTO) 7.6 %; NEUTROPHILS # (AUTO) 7.3 10^3/uL (1.5-6.6); NEUTROPHILS % (AUTO) 75.9 %; PLT - PLATELET COUNT 226 10^3/uL (130-450); RED BLOOD COUNT 4.99 10^6/uL (4.70-6.10); RED CELL DISTRIBUTION WIDTH 12.1 % (12.0-15.0); WHITE BLOOD COUNT 9.7 x10^3/uL (4.8-10.8)
[2023-04-10] MEDS: SODIUM CHLORIDE 0.9% 1,000 ML IV STA (16:09)
[2023-04-10] MEDS: LORazepam 2 MG/ML VIAL IVP STA (16:10)
[2023-04-10] MEDS: METOCLOPRAMIDE 10 MG/2 ML VIAL IVP STA (16:10)
[2023-04-10 16:28] LABS: ALBUMIN 4.8 g/dL (3.2-5.5); ALBUMIN/GLOBULIN RATIO 1.7 (1.0-2.2); BILIRUBIN,TOTAL 0.7 mg/dL (0.2-1.0); CALCIUM 10.4 mg/dL (8.5-10.3); POTASSIUM 3.6 mmol/L (3.5-4.5); TOTAL PROTEIN 7.7 g/dL (6.4-8.9)
[2023-04-10 18:01] VITALS: BP 146/89; O2SAT 98
--- NOTE | 2023-04-10 18:03 | MRI Report ---
PROCEDURE: Brain WO INDICATIONS: vertigo TECHNIQUE: Noncontrast axial T1 spin echo, axial T2 fast spin echo, sagittal and axial FLAIR, coronal T2 fast sp in echo, axial gradient echo, axial diffusion and ADC through the brain. COMPARISON: None. FINDINGS: Image quality: Excellent. CSF Spaces: Basal cisterns are patent. No extra-axial fluid collections. Ventricles are normal in size and shape. Brain: No intracranial masses or hemorrhage. Hartman/white matter interface is normal. Brainstem appe ars normal. Diffusion-weighted images demonstrate no acute ischemic insult. No chronic ischemic ins ults. Normal intravascular flow voids are present. Skull and face: Calvarium has normal marrow signal. Orbits appear normal. Sinuses: Sinuses and mastoids are clear. IMPRESSION: No acute intracranial process. Reviewed by: Gordo Alcantara MD on 04/10/2023 6:02 PM [facility] [place] Approved by: Gordo Alcantara MD on 04/10/2023 6:02 PM [facility] [place] Station ID: [id number]
== END 2023-04-10 18:17 | disposition home or self-care (01) ==
LOC: ED 15:09
DX: R42 Dizziness and giddiness (principal); Z87.891 Personal history of nicotine dependence
CPT/HCPCS: 36415; 70551; 80053; 85025; 96374; 99284; J2060; J2765